=== PATIENT | male | born 1950 | race Hispanic/Latino ===

== ENCOUNTER 2018-04-11 20:08 | Inpatient (IN) | payer OTHER, MEDICARE ==
[~2018-04-11] VITALS: Ht 170.2 cm; Wt 122.5 kg
[2018-04-11 21:21] LABS: BASOPHILS % 0.5 % (0.0-1.0); EOSINOPHILS # (AUTO) 0.1 (0.0-0.4); EOSINOPHILS % 1.4 % (0.0-6.0); HEMATOCRIT 43.7 % (38.2-49.6); LYMPHOCYTES % 25.4 % (18.0-39.1); MEAN CORPUSCULAR HEMOGLOBIN 32.2 pg (28-32); MEAN CORPUSCULAR HGB CONC 34.3 g/dL (31-35); MEAN CORPUSCULAR VOLUME 93.8 fL (81-99); MONOCYTES # (AUTO) 0.8 (0.2-0.8); MONOCYTES % 9.6 % (4.4-11.3); NEUTROPHILS # (AUTO) 4.9 (2.1-6.9); NEUTROPHILS % 62.8 % (38.7-80.0); PLATELET COUNT 215 x10e3/uL (140-360); RED BLOOD COUNT 4.66 x10e6/uL (4.3-5.7); RED CELL DISTRIBUTION WIDTH 14.3 % (11.7-14.4)
[2018-04-11 21:37] LABS: ALBUMIN 3.8 g/dL (3.5-5.0); ALBUMIN/GLOBULIN RATIO 0.8 (0.8-2.0); CALCIUM 9.8 mg/dL (8.4-10.2); CREATININE, SERUM 4.26 mg/dL (0.72-1.25)
[2018-04-11 21:57] LABS: CREATINE KINASE MB 5.5 ng/mL (0-5.0); THYROID STIMULATING HORMONE 14.651 uIU/mL (0.350-4.940)
[2018-04-11 21:58] LABS: CLARITY,URINE CLEAR (CLEAR); COLOR,URINE YELLOW (YELLOW); LEUKOCYTE ESTERASE ,URINE NEGATIVE (NEGATIVE); NITRITE,URINE NEGATIVE (NEGATIVE)
[2018-04-11 21:59] LABS: BILIRUBIN,URINE NEGATIVE (NEGATIVE); KETONES,URINE NEGATIVE (NEGATIVE); PROTEIN,URINE DIPSTICK NEGATIVE (NEGATIVE); URINE UROBILINOGEN 0.2 mg/dL (0.2 - 1)
[2018-04-11 22:04] LABS: BACTERIA,URINE RARE /HPF; EPITHELIAL CELLS,URINE FEW /LPF; RBC,URINE 0-5 /HPF (0-5); WBC,URINE (MAN) 0-5 /HPF (0-5)
[2018-04-11 22:11] LABS: INR 1.08; PROTHROMBIN TIME 13.2 seconds (11.9-14.5)
[2018-04-11 22:12] LABS: PARTIAL THROMBOPLASTIN TIME 32.9 seconds (23.8-35.5)
--- NOTE | 2018-04-11 22:46 | Diagnostic Imaging Report ---
EXAM: CHEST 2 VIEWS, PA and lateral INDICATION: Renal failure COMPARISON: None FINDINGS: LINES/TUBES: None LUNGS: Interstitial edema PLEURA: No effusions or pneumothorax. HEART AND MEDIASTINUM: Normal size and contour. Median sternotomy wires and mediastinal clips. BONES AND SOFT TISSUES: No acute findings. Surgical clips right neck. IMPRESSION: Mild interstitial edema. Signed by: Dr. Selam Rai M.D. on 04/11/2018 10:42 PM
--- NOTE | 2018-04-12 00:51 | Diagnostic Imaging Report ---
EXAM: CT ABDOMEN AND PELVIS without IV CONTRAST INDICATION: Decreased urine output COMPARISON: None TECHNIQUE: The abdomen and pelvis were scanned using a multidetector helical scanner. Coronal and sagittal reformations were obtained. Renal stone protocol performed. IV Contrast: None Oral Contrast: None CTDIvol has been reviewed. It is below the limits set by the Radiation Protocol Committee (RPC). FINDINGS: LOWER THORAX: Motion artifact limits evaluation. There appears to be mild edema and several nonspecific pulmonary nodules measuring up to 6 mm in the lung bases. LIVER: No masses BILIARY: Normal gallbladder. No ductal dilation. SPLEEN: No masses PANCREAS: No masses ADRENALS: No nodules RIGHT KIDNEY: No nephroureterolithiasis or hydronephrosis. LEFT KIDNEY: No nephroureterolithiasis or hydronephrosis. GI TRACT: No wall thickening or obstruction. Sigmoid colon diverticulosis without evidence of diverticulitis. Normal appendix. VESSELS: Marked atherosclerotic changes of the abdominal aorta without aneurysm. PERITONEUM/RETROPERITONEUM: No free air or fluid LYMPH NODES: No lymphadenopathy REPRODUCTIVE ORGANS: The prostate measures 5.3 cm in transverse diameter. BLADDER: Decompressed by Garcia catheter. SOFT TISSUES: Normal BONES: No suspicious bone lesions. IMPRESSION: 1. No acute findings in the CT of the abdomen or pelvis. 2. Nonspecific pulmonary nodules seen in each lung base measuring up to [address] of the chest without IV contrast, low-dose protocol is recommended to assess for additional/larger nodules. 3. Prostatomegaly. Signed by: Dr. Selam Rai M.D. on 04/12/2018 12:48 AM
[2018-04-12] MEDS: SODIUM CHLORIDE 0.9% 1000ML 1,000 ML IV SCH ×4 (01:00→21:00)
--- OUTSIDE RECORDS SUMMARY | 2018-04-12 01:48 | XMS REPORT ---
[facility] Address Unknown Phone Unavailable Care Team Providers Care Putaway Driver Name Role Phone CHALINO HARRIS Unavailable Unavailable Problems This patient has no known problems. Allergies, Adverse Reactions, Alerts This patient has no known allergies or adverse reactions. Medications This patient has no known medications. Results Test Description Test Time Test Comments Text Results Atomic Results Result Comments CT ABDOMEN/PELVIS WO [place] [address] Patient Name: JOHNNY MALOENY MR #: [id number] : 1950 Age/Sex: 68/M Req #: [id number] Adm Physician: Ordered by: CHALINO HARRIS MD Report #: [id number] Location: ER Room/Bed: Procedure: [id number] CT/CT ABDOMEN/PELVIS WO Exam Date: 04/12/18 Exam Time: 0015 REPORT STATUS: Signed EXAM: CT ABDOMEN AND PELVIS without IV CONTRAST INDICATION: Decreased urine output COMPARISON: None TECHNIQUE: The abdomen and pelvis were scanned using a multidetector helical scanner. Coronal and sagittal reformations were obtained. Renal stone protocol performed. IV Contrast: None Oral Contrast : None CTDIvol has been reviewed. It is below the limits set by the Radiation Protocol Committee (RPC). FINDINGS: LOWER THORAX: Motion artifact limits evaluation. There appears to be mild edema and several nonspecific pulmonary nodules measuring up to 6 mm in the lung bases. LIVER: No masses BILIARY: Normal gallbladder. No ductal dilation. SPLEEN: No masses PANCREAS: No masses ADRENALS: No nodules RIGHT KIDNEY: No nephroureterolithiasis or hydronephrosis. LEFT KIDNEY: No nephroureterolithiasis or hydronephrosis. GI TRACT: No wall thickening or obstruction. Sigmoid colon diverticulosis without evidence of diverticulitis. Normal appendix. VESSELS: Marked atherosclerotic changes of the abdominal aorta without aneurysm. PERITONEUM/RETROPERITONEUM: No free air or fluid LYMPH NODES: No lymphadenopathy REPRODUCTIVE ORGANS: The prostate measures 5.3 cm in transverse diameter. BLADDER: Decompressed by Garcia catheter. SOFT TISSUES: Normal BONES: No suspicious bone lesions. IMPRESSION: 1. No acute findings in the CT of the abdomen or pelvis. 2. Nonspecific pulmonary nodules seen in each lung base measuring up to [address] of the chest without IV contrast, low-dose protocol is recommended to assess for additional/larger nodules. 3. Prostatomegaly. Signed by: Dr. Alida Rai M.D. on 04/12/2018 12:48 AM Dictated By: ALIDA RAI MD Transcribed By: ALANNA on 04/12/1847 COPY TO: CHALINO HARRIS MD CHEST 2 VIEWS [place] [address] Patient Name: JOHNNY MALONEY MR #: [id number] : 1950 Age/Sex: 68/M Req #: [id number] Adm Physician: Ordered by: CHALINO HARRIS MD Report #: [id number] Location: ER Room/Bed: Procedure: [id number] DX/CHEST 2 VIEWS Exam Date: Exam Time: REPORT STATUS: Signed EXAM: CHEST 2 VIEWS, PA and lateral INDICATION: Renal failure COMPARISON: None FINDINGS: LINES/TUBES: None LUNGS: Interstitial edema PLEURA: No effusions or pneumothorax. HEART AND MEDIASTINUM: Normal size and contour. Median sternotomy wires and mediastinal clips. BONES AND SOFT TISSUES: No acute findings. Surgical clips right neck. IMPRESSION: Mild interstitial edema. Signed by: Dr. Alida Rai M.D. on 04/11/2018 10:42 PM Dictated By: ALIDA RAI MD 41 Transcribed By: ALANNA on 04/11/182241 COPY TO: CHALINO HARRIS MD
[2018-04-12] MEDS ORDERED: LISINOPRIL20 MG PO (02:02)
[2018-04-12] MEDS ORDERED: METOPROLOL TART50 MG PO (02:02)
[2018-04-12] MEDS ORDERED: VALTREX500 MG PO (02:02)
[2018-04-12] MEDS ORDERED: CLONIDINE HCL0.2 MG PO (02:02)
[2018-04-12] MEDS ORDERED: LIPITOR20 MG PO (02:02)
[2018-04-12] MEDS ORDERED: LEVOTHYROXINE50 MCG PO (02:02)
[2018-04-12] MEDS ORDERED: GABAPENTIN400 MG PO (02:02)
[2018-04-12 02:09] VITALS: BP 110/69
[2018-04-12] MEDS ORDERED: ASPIRIN81 MG PO (02:41)
[2018-04-12] MEDS: METOPROLOL TARTRATE 50 MG TAB PO SCH ×3 (03:00→17:35)
[2018-04-12] MEDS: CLONIDINE HCL 0.2 MG TAB PO SCH ×4 (03:08→17:33)
[2018-04-12 04:00] VITALS: BP 148/59
[2018-04-12] MEDS ORDERED: LEVOTHYROXINE SODIUM 25 MCG TABLET PO SCH ×2 (06:00→10:30)
[2018-04-12 07:56] VITALS: BP 138/62
[2018-04-12 07:56] LABS: BASOPHILS % 0.6 % (0.0-1.0); EOSINOPHILS # (AUTO) 0.1 (0.0-0.4); HEMATOCRIT 41.8 % (38.2-49.6); HEMOGLOBIN 14.1 g/dL (14.0-18.0); LYMPHOCYTES % 28.3 % (18.0-39.1); MEAN CORPUSCULAR HGB CONC 33.7 g/dL (31-35); MEAN CORPUSCULAR VOLUME 94.8 fL (81-99); MONOCYTES # (AUTO) 0.6 (0.2-0.8); MONOCYTES % 8.1 % (4.4-11.3); NEUTROPHILS # (AUTO) 4.2 (2.1-6.9); NEUTROPHILS % 60.9 % (38.7-80.0); PLATELET COUNT 212 x10e3/uL (140-360); RED BLOOD COUNT 4.41 x10e6/uL (4.3-5.7); RED CELL DISTRIBUTION WIDTH 14.5 % (11.7-14.4)
[2018-04-12 08:25] LABS: ALBUMIN 3.3 g/dL (3.5-5.0); ALBUMIN/GLOBULIN RATIO 0.8 (0.8-2.0); CALCIUM 9.3 mg/dL (8.4-10.2); CREATININE, SERUM 3.38 mg/dL (0.72-1.25)
[2018-04-12 08:45] LABS: CREATINE KINASE MB 4.8 ng/mL (0-5.0)
[2018-04-12] MEDS: GABAPENTIN 400 MG CAP PO SCH ×3 (09:00→17:34)
[2018-04-12] MEDS: ATORVASTATIN 20 MG TAB PO SCH ×2 (09:00→10:44)
[2018-04-12] MEDS ORDERED: VALACYCLOVIR HCL 500 MG TAB PO SCH (09:00)
[2018-04-12] MEDS: FAMOTIDINE 20 MG/2 ML VIAL IV SCH ×2 (10:41→21:27)
[2018-04-12] MEDS: ASPIRIN 81 MG CHEW TAB PO SCH (10:41)
[2018-04-12] MEDS ORDERED: LEVOTHYROXINE SODIUM 50 MCG TAB PO SCH (10:45)
--- NOTE | 2018-04-12 11:46 | History and Physical ---
Mr. Prasad is a pleasant, 68-year-old man who works for the [employer] who presented to the emergency room on the evening of the with the complaint of pelvic pain and inability to urinate. HISTORY OF PRESENT ILLNESS: The patient and his , who both speak only [place], report that his problems really began last Monday, the 06 of April, when he noted shingles on the right side of his neck and visited a doctor in [place] where he was given valacyclovir and gabapentin. He felt he was getting better with that until during the day on Monday, the 11 of April, when he developed discomfort in his pelvis and genitals and could not urinate for several hours and decided to come to the emergency room. PAST MEDICAL HISTORY: Significant for hypertension. He has known coronary disease with coronary artery bypass graft surgery at [facility] in 2007. He had lumbar spine surgery in 2013. HOME MEDICATIONS: Include: 1. Aspirin 81 mg daily. 2. Atorvastatin 20 mg 3. 8 mg daily. 4. Clonidine 0.2 mg b.i.d. 5. Gabapentin 400 mg b.i.d. 6. Levothyroxine 25 mcg daily. 7. Lisinopril 40 mg daily. 8. Toprol 50 mg twice a day. 9. Valacyclovir 1,000 mg t.i.d. SOCIAL HISTORY: The patient works for the [employer]. He does not smoke. REVIEW OF SYSTEMS : He does not know of any kidney problems. GASTROINTESTINAL: Negative. FAMILY HISTORY: Not pertinent. PHYSICAL EXAMINATION GENERAL: Exam at this time shows a pleasant, obese, man, alert and responsive. VITALS: Blood pressure 138/62 presently. The blood pressure in the emergency room was 190 to 200 systolic. HEAD, EYES, EARS, NOSE AND THROAT: Unremarkable. NECK: There are healing punctate lesions on the right side of the neck that do not include pustules. THORAX: Healed midline sternotomy. Heart sounds S1 and S2 are equal, no murmurs. Lungs are clear. ABDOMEN: Protuberant. Normal bowel sounds. Nontender. EXTREMITIES: No cyanosis, clubbing or edema. : He has a Garcia catheter in place, placed by the emergency room. PERTINENT LABORATORY STUDIES: Unremarkable CBC. Presenting chemistries showed BUN 68, creatinine 4.26, TSH 14.6. BNP is 157. Urinalysis is unremarkable. CT scan of the abdomen is unremarkable. Chest x-ray shows a 6-mm pulmonary nodule. ASSESSMENT 1. Urinary retention, etiology not clear. 2. Renal insufficiency, not previously known. 3. Recent shingles. 4. Difficult hypertension. 5. Hypothyroidism, not appropriately replaced, with thyroid-stimulating hormone of 14.6. PLAN: The patient has already had a Garcia catheter placed. Will continue his antihypertensives and valacyclovir. We will ask for renal and urology input. Further management based on clinical course. Job#: [id number] cc:MD VIVIAN MELÉNDEZ MD RAUL GARCIA, MD
[2018-04-12 12:22] VITALS: BP 172/83
--- NOTE | 2018-04-12 12:36 | Consultation ---
DATE OF CONSULTATION: April 12, 2018 UROLOGICAL CONSULTATION CONSULTATION TO: Dr. Horner and Dr. Lomax. REASON FOR CONSULTATION: Urinary retention. HISTORY: This 68-year-old male comes to the hospital after being discharged from [facility] for pain around his neck and back. The patient has herpes zoster. This is surrounding the right side upper chest. Patient was there, stated that apparently he was fine except for the pain. They gave him an injection. After the injection, he started feeling poorly and that he apparently had developed a problem since then. He signed himself out of the hospital there, went to see his primary, and his primary recommended him to come to the hospital for treatment. Upon arrival here, it was noted that his BUN and creatinine were elevated and that the reason for him to come to the hospital was because he was having suprapubic pain and that he had been unable to urinate. Upon arrival, a Garcia catheter was placed in. I have looked at the chart and I have not seen how much he had in his bladder then. PAST UROLOGICAL HISTORY: Essentially negative. PAST SURGICAL HISTORY: He has had open heart surgery for coronary artery disease and he has had back surgery, lumbar, with hardware placed in the back. MEDICAL HISTORY: High blood pressure. UROLOGICAL EXAMINATION: Bilaterally descended testicles. Penis is uncircumcised, normal. Garcia catheter in place. Lipoma of the left groin. Prostate approximately [address] SCAN: CT scan, from the urological standpoint there are no stones in the bladder or the kidneys. There is no perinephric stranding to suggest some edema reaction of the kidney to account for the high and very abnormal BUN and creatinine. He is having renal urine which is clear. LAB WORK: BUN and creatinine elevated, otherwise all the tests are normal. A urine culture is pending. IMPRESSION: Urinary retention and renal failure. RECOMMENDATIONS: At the present time, continue Garcia catheter drainage and check BUN and creatinine in 24 hours. Will follow recommendations of Nephrology as kidney function goes, and I will determine when I am going to remove the Garcia and give him a voiding trial. I do not recommend adding any medication to this patient at this point such as tamsulosin or finasteride since there is no CT scan evidence of any chronic urinary retention or symptomatology of chronic urinary retention. Thank you very much for allowing me to see this patient in consultation with you. Job#: [id number] EV
--- NOTE | 2018-04-12 15:35 | Consultation ---
DATE OF CONSULTATION: April 12, 2018 RENAL CONSULTATION HISTORY OF PRESENT ILLNESS: History predominantly from and patient. A 68-year-old gentleman with underlying history of type 2 diabetes, hypertension, hypothyroidism, hyperlipidemia. Renal consult for evaluation of acute kidney injury. He was unable to pee despite straining. He denies any prior history of prostate enlargement. Denies prior history of any kidney disease. Denies any history of kidney stones. Has history of neuropathy. CURRENT MEDICATIONS: Include aspirin, normal saline, atorvastatin, clonidine 0.2 p.o. t.i.d., famotidine, gabapentin, levothyroxine, metoprolol and valacyclovir 1000 mg p.o. t.i.d. SOCIAL HISTORY: Does not smoke or drink. ALLERGIES: TO PENICILLIN. FAMILY HISTORY: Significant for hypertension. CURRENT REVIEW OF SYSTEMS: Negative for nausea, vomiting, chest pain, shortness of breath. LABS: White count 6.88. Hemoglobin 14.1. Potassium 5. Bicarbonate 21. Creatinine 4.26. With a BNP of 157. TSH of 14.651. Total protein 8.3, which is now down to 7.2 with a globulin of 3.9. PHYSICAL EXAMINATION: GENERAL: Awake, alert, lying supine. No apparent distress. VITALS: Blood pressure 172/83, pulse rate 51, afebrile, oxygen saturation 96% on room air. HEAD AND NECK: Cornea clear. Oral mucosa dry. LUNGS: Relatively clear. HEART: S1 and S2 audible. ABDOMEN: Otherwise soft, nontender. LOWER EXTREMITY EXAMINATION: Shows no edema. IMPRESSION: Cvlbq-yq-ipfizaw kidney failure. Obstructive uropathy. Bladder neck obstruction due to enlarged prostate. CT scan noted mild distal renal tubular acidosis. Elevated TSH, defer to primary. CK-MB 5.50. No evidence of CHF. Echocardiogram pending. Will obtain kidney ultrasound, 24-hour urine for creatinine clearance and proteins. Will start Flomax 0.4 mg at bedtime. Continue with IV normal saline. Blood pressure noted. Please see orders. Job#: [id number] EV
[2018-04-12 16:13] VITALS: BP 162/79
--- NOTE | 2018-04-12 16:22 | Diagnostic Imaging Report ---
PROCEDURE:US RETROPERITONEAL ( KIDNEY ). COMPARISON:Patients [facility], CT, CT ABDOMEN/PELVIS WO, 04/12/2018, 0:20. INDICATIONS:KRISTIN TECHNIQUE: Castillo-scale and color sonographic images of the bilateral kidneys and bladder where obtained in transverse and longitudinal planes. FINDINGS: RIGHT KIDNEY: 11.1 cm, cortex 1.5 cm Cysts: None Solid masses: None Stones: None Hydronephrosis: None Echogenicity: Normal LEFT KIDNEY: 10.8 cm, cortex 2.4 cm Cysts: None Solid masses: None Stones: None Hydronephrosis: None Echogenicity: Normal Bladder: Garcia catheter in place. No focal lesions or wall thickening. Prostate: Not visualized. CONCLUSION: Normal bilateral renal size, and echogenicity, without hydronephrosis, stones, or obstruction. Rui Mari M.D. Dictated by: Rui Mari M.D. on 04/12/2018 at 16:24 Electronically approved by: Rui Mari M.D. on 04/12/2018 at 16:24
[2018-04-12 17:09] LABS: CREATINE KINASE MB 4.3 ng/mL (0-5.0)
[2018-04-12] MEDS: VALACYCLOVIR HCL 500 MG TAB PO SCH (17:37)
[2018-04-12 20:00] VITALS: BP 160/70
[2018-04-12] MEDS: CATAPRES PO SCH (21:00)
[2018-04-12] MEDS: ATORVASTATIN 80 MG PO SCH (21:28)
[2018-04-12] MEDS: TAMSULOSIN HCL 0.4 MG CAP PO SCH (21:28)
[2018-04-13] VITALS (7 sets, daily range): BP systolic 139–197; BP diastolic 65–91
[2018-04-13 05:12] LABS: CLARITY,URINE SL CLOUDY (CLEAR); COLOR,URINE STRAW (YELLOW); LEUKOCYTE ESTERASE ,URINE NEGATIVE (NEGATIVE); NITRITE,URINE NEGATIVE (NEGATIVE)
[2018-04-13 05:13] LABS: PROTEIN,URINE DIPSTICK 1+ (NEGATIVE)
[2018-04-13 05:14] LABS: AMORPHOUS SEDIMENT,URINE FEW (FEW); BACTERIA,URINE FEW /HPF; BILIRUBIN,URINE NEGATIVE (NEGATIVE); EPITHELIAL CELLS,URINE RARE /LPF; KETONES,URINE NEGATIVE (NEGATIVE); MUCUS,URINE FEW (RARE); RBC,URINE >50 /HPF (0-5); URINE UROBILINOGEN 0.2 mg/dL (0.2 - 1)
[2018-04-13] MEDS: SYNTHROID 25 MCG PO SCH (06:00)
[2018-04-13] MEDS ORDERED: SYNTHROID 25 MCG PO SCH (06:00)
[2018-04-13 06:33] LABS: BASOPHILS % 0.5 % (0.0-1.0); EOSINOPHILS # (AUTO) 0.1 (0.0-0.4); EOSINOPHILS % 1.6 % (0.0-6.0); HEMATOCRIT 43.4 % (38.2-49.6); HEMOGLOBIN 14.5 g/dL (14.0-18.0); LYMPHOCYTES # (AUTO) 2.1 (1.0-3.2); LYMPHOCYTES % 26.7 % (18.0-39.1); MEAN CORPUSCULAR HEMOGLOBIN 32.3 pg (28-32); MEAN CORPUSCULAR HGB CONC 33.4 g/dL (31-35); MEAN CORPUSCULAR VOLUME 96.7 fL (81-99); MONOCYTES # (AUTO) 0.5 (0.2-0.8); MONOCYTES % 6.6 % (4.4-11.3); NEUTROPHILS # (AUTO) 4.9 (2.1-6.9); NEUTROPHILS % 64.2 % (38.7-80.0); PLATELET COUNT 263 x10e3/uL (140-360); RED BLOOD COUNT 4.49 x10e6/uL (4.3-5.7); RED CELL DISTRIBUTION WIDTH 14.3 % (11.7-14.4)
[2018-04-13 06:52] LABS: CHOL/HDL RATIO 7.1 (3.9-4.7)
[2018-04-13] MEDS: SODIUM CHLORIDE 0.9% 1000ML 1,000 ML IV SCH ×2 (07:00→17:00)
[2018-04-13 07:33] LABS: ALBUMIN 3.5 g/dL (3.5-5.0); ALBUMIN/GLOBULIN RATIO 0.8 (0.8-2.0); CALCIUM 9.6 mg/dL (8.4-10.2); CREATININE, SERUM 2.22 mg/dL (0.72-1.25)
[2018-04-13] MEDS: CATAPRES PO SCH ×3 (09:00→21:10)
[2018-04-13] MEDS: GABAPENTIN 400 MG PO SCH ×2 (09:00→17:00)
[2018-04-13] MEDS: ASPIRIN 81 MG CHEW TAB PO SCH (09:00)
[2018-04-13] MEDS: VALACYCLOVIR HCL 500 MG TAB PO SCH ×2 (09:00→17:00)
[2018-04-13] MEDS: FAMOTIDINE 20 MG/2 ML VIAL IV SCH ×2 (09:00→21:10)
[2018-04-13] MEDS: LOPRESSOR 50 MG PO SCH ×2 (09:00→17:00)
[2018-04-13] MEDS: NIFEDIPINE CR 30 MG TAB PO SCH ×2 (09:58→17:00)
--- NOTE | 2018-04-13 12:56 | Progress Note ---
DATE: April 13, 2018 The patient today is doing better. As a matter of fact, his white blood cells and red blood cell count are stable and normal, so are his platelets. Chemistry-cho, his creatinine is now 2.2 instead of 3.3 as it was yesterday. His BUN instead of being 66 is 43. Currently, the patient has been afebrile. He offers no complaints of any pain. Since the patient went into urinary retention, the Garcia catheter was placed in. A voiding trial will be done now, since his BUN and creatinine are getting better. It has nothing to do with catheter drainage, since the patient did not have hydroureteronephrosis. His bladder also is nontrabeculated and normal. We will give him a voiding trial. I discussed that yesterday on my notes. The patient had been placed on tamsulosin by Dr. Lomax. The patient understands that he will need to measure his postvoid residual if he is able to urinate. If he is unable to urinate again, then further testing will be performed next week. Job#: [id number]
[2018-04-13 19:51] LABS: CREATININE,URINE RANDOM 56.01 mg/dL (63-166); TOTAL PROTEIN 24HR, URINE 1423.4 mg/24hr (50-100); TOTAL PROTEIN, URINE 34.3 mg/dL (1-14)
[2018-04-13] MEDS: TAMSULOSIN HCL 0.4 MG CAP PO SCH (21:10)
[2018-04-13] MEDS: ATORVASTATIN 80 MG PO SCH (21:10)
[2018-04-14] VITALS: BP 149/65
[2018-04-14 04:00] VITALS: BP 162/75
[2018-04-14] MEDS: SODIUM CHLORIDE 0.9% 1000ML 1,000 ML IV SCH ×2 (05:24→13:00)
[2018-04-14] MEDS: SYNTHROID 25 MCG PO SCH (06:00)
[2018-04-14 07:17] LABS: ALBUMIN 3.2 g/dL (3.5-5.0); ALBUMIN/GLOBULIN RATIO 0.9 (0.8-2.0); ANION GAP 11.2 mmol/L (8-16); CALCIUM 8.9 mg/dL (8.4-10.2); CREATININE, SERUM 1.5 mg/dL (0.72-1.25); POTASSIUM 4.2 mmol/L (3.5-5.1)
[2018-04-14 08:08] VITALS: BP 164/79
[2018-04-14] MEDS: NIFEDIPINE CR 30 MG TAB PO SCH (09:00)
[2018-04-14] MEDS: CATAPRES PO SCH (09:00)
[2018-04-14] MEDS: VALACYCLOVIR HCL 500 MG TAB PO SCH (09:00)
[2018-04-14] MEDS: FAMOTIDINE 20 MG/2 ML VIAL IV SCH (09:00)
[2018-04-14] MEDS: GABAPENTIN 400 MG PO SCH (09:00)
[2018-04-14] MEDS: LOPRESSOR 50 MG PO SCH (09:00)
[2018-04-14] MEDS: ASPIRIN 81 MG CHEW TAB PO SCH (09:00)
--- NOTE | 2018-04-14 09:42 | Progress Note ---
DATE: April 14, 2018 Today, the patient is doing well. Garcia catheter was removed last night after his 24-hour urine collection was concluded and since then the patient has voided perfectly. His usual voided amount is about 200 mL and his residuals have been around 35-60 mL. The patient at the present time is urologically stable and has no other complaints. His urine culture has been negative. BUN today is 31 as compared to 66 when he was admitted and his creatinine is 1.5 as compared to 3.3 when he was admitted. The patient states that his flow is good. He feels he empties his bladder. He does not have a split flow or an interrupted flow. IMPRESSION: Urologically normal and stable. RECOMMENDATIONS: Previous hospital, [facility], records are still not in. Dr. Lomax has given the patient Flomax and will let his continue to decide whether the patient needs to have that medication or not. I asked the patient and the that after he is discharged from the hospital to call my office and make an appointment. I would like to do a flow test in the office and a PSA. Job#: [id number] cc:VIVIAN LOMAX MD cc:RAUL VALLEJO MD cc:SMITHA QUEEN MD cc:SEVEN ROWELL MD
[2018-04-14 12:00] VITALS: BP 161/76
[2018-04-14] MEDS ORDERED: NIFEDIPINE CR 30 MG TAB PO SCH (17:00)
[2018-04-14 17:11] VITALS: BP 182/79
[2018-04-14 20:00] VITALS: BP 194/88
== END 2018-04-14 20:12 | disposition home or self-care (01) | DRG 725 ==
LOC: ER 20:08 → MED/SURG 04-12 01:44
PROVIDERS: ADMIT Internal Medicine Cardiovascular Disease; ATTEND Internal Medicine Cardiovascular Disease
DX: N40.1 Benign prostatic hyperplasia with lower urinary tract symptoms (principal); N17.0 Acute kidney failure with tubular necrosis; N13.8 Other obstructive and reflux uropathy; I13.0 Hypertensive heart and chronic kidney disease with heart failure and stage 1 through stage 4 chronic kidney disease, or unspecified chronic kidney disease; Z68.41 Body mass index [BMI] 40.0-44.9, adult; E03.9 Hypothyroidism, unspecified; N32.0 Bladder-neck obstruction; E11.22 Type 2 diabetes mellitus with diabetic chronic kidney disease; Z79.4 Long term (current) use of insulin; E66.01 Morbid (severe) obesity due to excess calories; B02.9 Zoster without complications; I25.10 Atherosclerotic heart disease of native coronary artery without angina pectoris; Z95.1 Presence of aortocoronary bypass graft; N18.3 Chronic kidney disease, stage 3 (moderate); Z88.0 Allergy status to penicillin; R91.1 Solitary pulmonary nodule
CPT/HCPCS: 36415; 51700; 71046; 74176; 76770; 80053; 80061; 81001; 81050; 82550; 82553; 82575; 82948; 83735; 83880; 84156; 84443; 84484; 85025; 85610; 85730; 87086; 93005; 93306; J7030

== ENCOUNTER 2018-04-16 12:31 | Emergency (ER) | payer OTHER, MEDICARE ==
[~2018-04-16] VITALS: Ht 170.2 cm; Wt 122.5 kg
[~2018-04-16 12:31] MED LIST: ASPIRIN81 MG PO; CLONIDINE HCL0.2 MG PO; GABAPENTIN400 MG PO; LEVOTHYROXINE50 MCG PO; LIPITOR20 MG PO; LISINOPRIL20 MG PO; METOPROLOL TART50 MG PO; VALTREX500 MG PO
--- OUTSIDE RECORDS SUMMARY | 2018-04-16 12:34 | XMS REPORT | Continuity of Care Document ---
Author Author [facility] Organization [facility] Address [address] [address] Phone Unavailable Care Team Providers Care Personalized Living Manager Nurse Name Role Phone SEVEN ROWELL MD PCP Insurance Providers Guarantor Collins Cavazos Address [address] [place] [address] Email [email or web address] Payer A[employer] Medicare Replacement Policy Number [id number] Subscriber's Name Collins Zurita Relationship G8 Other Relationship Group Number [id number] Group Name [employer] Effective Date 17 Payer Cigna Hmo Policy Number [id number] Subscriber's Name Santi Cavazos Relationship 18 Self / Same As Patient Group Number [id number] Group Name [facility] Effective Date 12 Advance Directives Directive Response Recorded Date/Time Does the patient have an advance directive? No 04/12/18 2:34am If yes, is advance directive on file with [facility]? No 04/12/18 2:34am If not on file with [facility] will patient provide a copy? Yes 04/11/18 9:55pm Do you have a Directive to Physician? No 04/11/18 9:55pm Do you have a Medical Power of Licensed Occupational Therapy Assistant? No 04/11/18 9:55pm Do you have an out of hospital Do Not Resuscitate Order? No 04/11/18 9:55pm Do you have any special needs we should be aware of? No 04/11/18 9:55pm Do you have a support person here with you today? Yes 04/11/18 9:55pm Did patient receive Notice of Privacy Practices? Yes 04/11/18 9:55pm Did patient receive patient rights and responsibilities? Yes 04/11/18 9:55pm Problems Medical Problem Onset Date Status Acute renal failure Unknown Medications Current Home Medications Medication Dose Units Route Directions Days Qty Instructions Start Date Aspirin 81 Mg Tab.chew 81 Mg Oral Daily Atorvastatin Calcium (Lipitor) 20 Mg Tablet 80 Mg Oral Daily 30 Tab Clonidine Hcl 0.2 Mg Tablet 0.2 Mg Oral Three Times A Day Gabapentin 400 Mg Capsule 400 Mg Oral Twice A Day 30 Cap Levothyroxine Sodium 50 Mcg Tablet 25 Mcg Oral Daily 30 Tab Lisinopril (Prinavil / Zestril) 20 Mg Tablet 40 Mg Oral Daily Metoprolol Tartrate 50 Mg Tablet 50 Mg Oral Twice A Day Valacyclovir Hcl (Valtrex) 500 Mg Tab 1,000 Mg Oral Three Times A Day Family History Relationship Condition Age at Onset Recorded Date/Time 34 Mother Family history of hypertension Not Recorded 04/12/2018 2:52am Social History Social History Problem Response Recorded Date/Time Onset Date Status Hx Psychiatric Problems No 04/12/2018 2:34am Not Applicable Not Applicable Hx Eating Disorder No 04/12/2018 2:34am Not Applicable Not Applicable Hx Substance Use Disorder No 04/12/2018 2:34am Not Applicable Not Applicable Hx Depression No 04/12/2018 2:34am Not Applicable Not Applicable Hx Alcohol Use No 04/12/2018 2:34am Not Applicable Not Applicable Hx Substance Use Treatment No 04/12/2018 2:34am Not Applicable Not Applicable Hx Physical Abuse No 04/12/2018 2:34am Not Applicable Not Applicable Smoking Status Start Date Stop Date Never Smoker Hospital Discharge Instructions No hospital discharge instruction information available. Plan of Care Discharge Date 04/14/18 8:12pm Disposition HOME, SELF-CARE Instructions/Education Provided Kidney Failure Prescriptions See Medication Section Additional Instructions/Education CONTINUE DIET, ACTIVITY AND MEDS ORDERED BY MD. FOLLOW UP WITH DR ROWELL, DR MERCEDES AND DR FRANCISCO NEXT WEEK. Functional Status Query Response Date Recorded Assistive Devices None April 12, 2018 2:44am Ambulation Ability Independent April 12, 2018 2:44am Toileting Ability Independent April 14, 2018 6:59pm Allergies, Adverse Reactions, Alerts Allergen Type Severity Reaction Status Last Updated PENICILLIN Allergy Severe Active 04/11/18 Immunizations No immunization information available. Vital Signs Acute Vital Signs Vital Response Date/Time Temperature (Fahrenheit) 97.2 degrees F (97.6 - 99.5) 04/14/2018 8:00pm Pulse Pulse Rate (adult) 57 bpm (60 - 90) 04/14/2018 8:00pm Respiratory Rate 18 bpm (12 - 24) 04/14/2018 8:00pm Blood Pressure 194/88 mm Hg 04/14/2018 8:00pm Height 5 ft 7 in 04/11/2018 8:12pm Weight 270 lb 04/11/2018 8:12pm Body Mass Index 42.3 kg/m^2 04/12/2018 2:34am Results Laboratory Results Test Name Result Units Flags Reference Collection Date/Time Result Date/ Time Comments White Blood Count 7.68 x10e3/uL 4.8-10.8 04/13/2018 6:10am 04/13/2018 6 :35am Red Blood Count 4.49 x10e6/uL 4.3-5.7 04/13/2018 6:10am 04/13/2018 6: 35am Hemoglobin 14.5 g/dL 14.0-18.0 04/13/2018 6:10am 04/13/2018 6:35am Hematocrit 43.4 % 38.2-49.6 04/13/2018 6:10am 04/13/2018 6:35am Mean Corpuscular Volume 96.7 fL 81-99 04/13/2018 6:10am 04/13/2018 6: 35am Mean Corpuscular Hemoglobin 32.3 pg H 28-32 04/13/2018 6:10am 2017 6:35am Mean Corpuscular Hemoglobin Concent 33.4 g/dL 31-35 04/13/2018 6:04/13/2018 6:35am Red Cell Distribution Width 14.3 % 11.7-14.4 04/13/2018 6:2017 6:35am Platelet Count 263 x10e3/uL 140-360 04/13/2018 6:04/13/2018 6: 35am Neutrophils (%) (Auto) 64.2 % 38.7-80.0 04/13/2018 6:04/13/2018 6: 35am Lymphocytes (%) (Auto) 26.7 % 18.0-39.1 04/13/2018 6:04/13/2018 6: 35am Monocytes (%) (Auto) 6.6 % 4.4-11.3 04/13/2018 6:04/13/2018 6: 35am Eosinophils (%) (Auto) 1.6 % 0.0-6.0 04/13/2018 6:04/13/2018 6: 35am Basophils (%) (Auto) 0.5 % 0.0-1.0 04/13/2018 6:04/13/2018 6:35am IM GRANULOCYTES % 0.4 % 0.0-1.0 04/13/2018 6:04/13/2018 6:35am Neutrophils # (Auto) 4.9 2.1-6.9 04/13/2018 6:04/13/2018 6:35am Lymphocytes # (Auto) 2.1 1.0-3.2 04/13/2018 6:04/13/2018 6:35am Monocytes # (Auto) 0.5 0.2-0.8 04/13/2018 6:04/13/2018 6:35am Eosinophils # (Auto) 0.1 0.0-0.4 04/13/2018 6:04/13/2018 6:35am Basophils # (Auto) 0.0 0.0-0.1 04/13/2018 6:04/13/2018 6:35am Absolute Immature Granulocyte (auto 0.03 x10e3/uL 0-0.1 04/13/2018 6: 04/13/2018 6:35am Prothrombin Time 13.2 seconds 11.9-14.5 04/11/2018 9:02pm 04/11/2018 10 :12pm Prothromb Time International Ratio 1.08 04/11/2018 9:02pm 2017 10:12pm Oral Anticoagulant Therapy INR Values: 1. Low Intensity Therapy 1.5 - 2.0 2. Moderate Intensity Therapy 2.0 - 3.0 3. High Intensity Therapy(1) 2.5 - 3.5 4. High Intensity Therapy(2) 3.0 - 4.0 5. Panic Value INR > 5.0 Activated Partial Thromboplast Time 32.9 seconds 23.8-35.5 04/11/2018 9: 02pm 04/11/2018 10:12pm Urine Color STRAW YELLOW 04/13/2018 4:00am 04/13/2018 5:14am Urine Clarity SL CLOUDY H CLEAR 04/13/2018 4:00am 04/13/2018 5:14am Urine Specific [place] 1.010 1.010-1.025 04/13/2018 4:00am 2017 5:14am Urine pH 5 5 - 7 04/13/2018 4:00am 04/13/2018 5:14am Urine Leukocyte Esterase NEGATIVE NEGATIVE 04/13/2018 4:00am 2017 5:14am Urine Nitrite NEGATIVE NEGATIVE 04/13/2018 4:00am 04/13/2018 5:14am Urine Protein 1+ H NEGATIVE 04/13/2018 4:00am 04/13/2018 5:14am Urine Glucose (UA) NEGATIVE NEGATIVE 04/13/2018 4:00am 04/13/2018 5: 14am Urine Ketones NEGATIVE NEGATIVE 04/13/2018 4:00am 04/13/2018 5:14am Urine Urobilinogen 0.2 mg/dL 0.2 - 1 04/13/2018 4:00am 04/13/2018 5: 14am Urine Bilirubin NEGATIVE NEGATIVE 04/13/2018 4:00am 04/13/2018 5: 14am Urine Blood 4+ H NEGATIVE 04/13/2018 4:00am 04/13/2018 5:14am Urine WBC 6-10 /HPF H 0-5 04/13/2018 4:00am 04/13/2018 5:14am Urine RBC >50 /HPF H 0-5 04/13/2018 4:00am 04/13/2018 5:14am Urine Bacteria FEW /HPF NONE 04/13/2018 4:00am 04/13/2018 5:14am Urine Epithelial Cells RARE /LPF NONE 04/13/2018 4:00am 04/13/2018 5: 14am Urine Amorphous Sediment FEW FEW 04/13/2018 4:00am 04/13/2018 5:14am Urine Mucus FEW H RARE 04/13/2018 4:00am 04/13/2018 5:14am Urine Random Total Protein 34.3 mg/dL H 1-14 04/12/2018 7:20pm 2017 7:52pm Urine Collection Time 24 hrs 04/12/2018 7:20pm 04/13/2018 7:52pm Urine Total Volume 4150 ml/24hr H 800-2000 04/12/2018 7:20pm 04/13/2018 7:52pm Urine Creatinine 56.01 mg/dL L 63-166 04/12/2018 7:20pm 04/13/2018 7: 52pm Urine Creatinine 24 Hour 2324 mg/24hr H 800-199904/12/2018 7:20pm 04/13 7:52pm Creatinine Clearance 48 ml/min L 95-145 04/12/2018 7:20pm 04/13/2018 7: 52pm Urine Total Protein 24 Hour 1423.4 mg/24hr H 50-100 04/12/2018 7:20pm 7:52pm Sodium Level 134 mmol/L L 136-145 04/14/2018 6:40am 04/14/2018 7:25am Potassium Level 4.2 mmol/L 3.5-5.1 04/14/2018 6:40am 04/14/2018 7:25am Chloride Level 107 mmol/L 98-107 04/14/2018 6:40am 04/14/2018 7:25am Carbon Dioxide Level 20 mmol/L L 22-04/14/2018 6:40am 04/14/2018 7: 25am Anion Gap 11.2 mmol/L 8-16 04/14/2018 6:40am 04/14/2018 7:25am Blood Urea Nitrogen 31 mg/dL H 704/14/2018 6:40am 04/14/2018 7:25am Creatinine 1.50 mg/dL H 0.72-1.25 04/14/2018 6:40am 04/14/2018 7:25am BUN/Creatinine Ratio 21 6-25 04/14/2018 6:40am 04/14/2018 7:25am Estimat Glomerular Filtration Rate 47 ML/MIN L 60- 04/14/2018 6:40am 7:25am Ranges were taken from the National Kidney Disease Education Program and the National Kid[employer] Foundation literature. Reference ranges: 60 or greater: Normal 16-59 (for 3 consecutive months): Chronic kidney disease 15 or less: Kidney failure Glucose Level 120 mg/dL H 74-118 04/14/2018 6:40am 04/14/2018 7:25am Calcium Level 8.9 mg/dL 8.4-10.2 04/14/2018 6:40am 04/14/2018 7:25am Bedside Glucose 85 mg/dL 70-120 04/13/2018 7:49am 04/13/2018 8:02am Meter ID: [id number] Magnesium Level 1.8 MG/DL 1.3-2.1 04/11/2018 9:02pm 04/11/2018 10:11pm Total Bilirubin 0.8 mg/dL 0.2-1.2 04/14/2018 6:40am 04/14/2018 7:25am Aspartate Amino Transf (AST/SGOT) 23 IU/L 5-34 04/14/2018 6:40am 2017 7:25am Alanine Aminotransferase (ALT/SGPT) 34 IU/L 0-55 04/14/2018 6:40am 7:25am Total Protein 6.8 g/dL 6.5-8.1 04/14/2018 6:40am 04/14/2018 7:25am Albumin 3.2 g/dL L 3.5-5.0 04/14/2018 6:40am 04/14/2018 7:25am Globulin 3.6 g/dL H 2.3-3.5 04/14/2018 6:40am 04/14/2018 7:25am Albumin/Globulin Ratio 0.9 0.8-2.0 04/14/2018 6:40am 04/14/2018 7: 25am Alkaline Phosphatase 62 IU/L 40-150 04/14/2018 6:40am 04/14/2018 7: 25am Triglycerides Level 161 MG/DL H 0-149 04/13/2018 6:10am 04/13/2018 6: 54am Cholesterol Level 164 MD/DL 0-199 04/13/2018 6:10am 04/13/2018 6:54am Less than 200 mg/dL Low Risk 201 - 239 mg/dL Borderline Risk 240 mg/dl and greater High Risk LDL Cholesterol 109 MG/DL 60-130 04/13/2018 6:10am 04/13/2018 6:54am HDL Cholesterol 23 MG/DL L 40-60 04/13/2018 6:10am 04/13/2018 6:54am Cholesterol/HDL Ratio 7.1 H 3.9-4.7 04/13/2018 6:10am 04/13/2018 6: 54am B-Type Natriuretic Peptide 157.4 pg/mL H 0-100 04/11/2018 9:02pm 2017 11:06pm Creatine Kinase 105 IU/L 30-200 04/12/2018 4:20pm 04/12/2018 5:01pm Creatine Kinase MB 4.30 ng/mL 0-5.0 04/12/2018 4:20pm 04/12/2018 5: 09pm Troponin I 0.008 ng/mL 0-0.300 04/12/2018 4:20pm 04/12/2018 5:09pm Thyroid Stimulating Hormone (TSH) 14.651 uIU/mL H 0.350-4.940 04/11/2018 9:02pm 04/11/2018 10:00pm Procedures Procedure Status Date Provider(s) X-ray of chest, two views Active 04/11/[address] of abdomen and pelvis without contrast Active 04/12/18 CHALINO HARRIS MD Ultrasound, renal Active 04/12/18 VIVIAN MERCEDES Encounters Encounter Location Arrival/Admit Date Discharge/Depart Date Attending Provider Discharged Inpatient [facility] 04/12/18 1:44am 04/14/18 8:12pm RAUL VALLEJO MD
[2018-04-16] MEDS ORDERED: ASPIRIN 81 MG CHEW TAB PO ONE (13:45)
[2018-04-16 15:15] LABS: BILIRUBIN,URINE NEGATIVE (NEGATIVE); CLARITY,URINE CLEAR (CLEAR); COLOR,URINE YELLOW (YELLOW); KETONES,URINE NEGATIVE (NEGATIVE); LEUKOCYTE ESTERASE ,URINE NEGATIVE (NEGATIVE); NITRITE,URINE NEGATIVE (NEGATIVE); PROTEIN,URINE DIPSTICK NEGATIVE (NEGATIVE); URINE UROBILINOGEN 0.2 mg/dL (0.2 - 1)
[2018-04-16 15:32] LABS: MUCUS,URINE FEW (RARE); RBC,URINE 0-5 /HPF (0-5); WBC,URINE (MAN) 0-5 /HPF (0-5)
[2018-04-16 16:10] LABS: BASOPHILS # (AUTO) 0.1 (0.0-0.1); BASOPHILS % 0.7 % (0.0-1.0); EOSINOPHILS # (AUTO) 0.3 (0.0-0.4); EOSINOPHILS % 3.6 % (0.0-6.0); HEMATOCRIT 41.9 % (38.2-49.6); HEMOGLOBIN 13.9 g/dL (14.0-18.0); LYMPHOCYTES # (AUTO) 2.4 (1.0-3.2); LYMPHOCYTES % 28.8 % (18.0-39.1); MEAN CORPUSCULAR HEMOGLOBIN 32.3 pg (28-32); MEAN CORPUSCULAR HGB CONC 33.2 g/dL (31-35); MEAN CORPUSCULAR VOLUME 97.4 fL (81-99); MONOCYTES # (AUTO) 0.6 (0.2-0.8); NEUTROPHILS # (AUTO) 4.9 (2.1-6.9); NEUTROPHILS % 59.4 % (38.7-80.0); PLATELET COUNT 303 x10e3/uL (140-360)
[2018-04-16 16:18] LABS: INR 1.08; PROTHROMBIN TIME 13.2 seconds (11.9-14.5)
[2018-04-16] MEDS ORDERED: PHENAZOPYRIDINE HCL 100 MG TAB PO ONE (16:20)
[2018-04-16 16:26] LABS: ALBUMIN 3.7 g/dL (3.5-5.0); ALBUMIN/GLOBULIN RATIO 0.9 (0.8-2.0); ANION GAP 12.2 mmol/L (8-16); CALCIUM 9.7 mg/dL (8.4-10.2); CREATININE, SERUM 1.25 mg/dL (0.72-1.25); POTASSIUM 4.2 mmol/L (3.5-5.1)
[2018-04-16 16:33] LABS: CREATINE KINASE MB 4.5 ng/mL (0-5.0)
--- NOTE | 2018-04-16 16:35 | Diagnostic Imaging Report ---
EXAMINATION: CHEST SINGLE (NOT PORTABLE) INDICATION: \S\ERMD ORDER \S\[id number] \S\[id number] \S\Y COMPARISON: 04/11/2018 FINDINGS: AP view TUBES and LINES: None. LUNGS: Lungs are well inflated. Lungs are clear. There is no evidence of pneumonia or pulmonary edema. PLEURA: No pleural effusion or pneumothorax. HEART AND MEDIASTINUM: The cardiomediastinal silhouette is unremarkable. CABG clips. BONES AND SOFT TISSUES: No acute osseous lesion. Median sternotomy wires. Soft tissues are unremarkable. UPPER ABDOMEN: No free air under the diaphragm. IMPRESSION: No acute thoracic abnormality. Signed by: DR. Kevin Hastings MD on 04/16/2018 4:31 PM
[2018-04-16] MEDS ORDERED: LIDOCAINE HCL 2% 100 MG/5 ML IV ONE (17:13)
[2018-04-16] MEDS ORDERED: LIDOCAINE HCL 2% 30 ML TUBE ONE (17:22)
== END 2018-04-16 18:48 | disposition home or self-care (01) ==
LOC: ER 12:31
DX: N40.1 Benign prostatic hyperplasia with lower urinary tract symptoms (principal); R33.8 Other retention of urine; I11.0 Hypertensive heart disease with heart failure; I50.9 Heart failure, unspecified; I25.10 Atherosclerotic heart disease of native coronary artery without angina pectoris; E78.5 Hyperlipidemia, unspecified; E03.9 Hypothyroidism, unspecified; R00.1 Bradycardia, unspecified; G62.9 Polyneuropathy, unspecified; Z79.82 Long term (current) use of aspirin
CPT/HCPCS: 51700; 93005; 99284; J2001

== ENCOUNTER 2019-04-09 09:31 | Emergency (ER) | payer OTHER, MEDICARE ==
[~2019-04-09] VITALS: Ht 170.2 cm; Wt 122.5 kg
[2019-04-09] MEDS ORDERED: KETOROLAC TROMETHAMINE 60 MG/2 ML VIAL IM ONE (09:45)
[2019-04-09] MEDS ORDERED: KETOROLAC TROMETHAMINE 60 MG/2 ML VIAL ONE (09:46)
[2019-04-09] MEDS ORDERED: DEXAMETHASONE SOD PHOS 10 MG/1 ML VIAL IM ONE (10:30)
[2019-04-09] MEDS ORDERED: METHOCARBAMOL 500 MG TAB PO ONE (10:30)
--- NOTE | 2019-04-09 12:24 | Diagnostic Imaging Report ---
Lumbar spine series, 5 views. History: Left low back pain. Comparison: None available. Discussion: Transpedicular screws and interconnecting rods/plates are present from L3 through S1. Surgical hardware appears intact. The alignment of the lumbar spine is normal. There is no evidence of fracture, spondylolisthesis, or spondylolysis. Severe disc space narrowing with osteophytosis and posterior facet sclerosis are present from L3 through S1. Mild disc space narrowing is present in the more superior levels with osteophytosis. The paraspinal soft tissues are unremarkable. 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 Signed by: Vimal Fenton on 04/09/2019 12:21 PM
[2019-04-09] MEDS ORDERED: CLONIDINE HCL 0.1 MG/24 HR 1 EA PATCH TOP ONE (12:30)
[2019-04-09] MEDS ORDERED: CLONIDINE HCL 0.1 MG TAB ONE (12:36)
[2019-04-09] MEDS ORDERED: CLONIDINE HCL 0.1 MG TAB PO ONE (12:45)
--- NOTE | 2019-04-09 13:26 | NUR ---
Dr. Ahuja notified of current BP. Patient given home med for chronic HTN, linisopril 20mg and ok to discharge. Patient asymptomatic
[2019-04-09] MEDS ORDERED: LISINOPRIL 20 MG TAB PO ONE (13:30)
[2019-04-09] MEDS ORDERED: LISINOPRIL 20 MG TAB ONE (13:31)
[2019-04-09 13:37] VITALS: BP 191/85
== END 2019-04-09 13:38 | disposition home or self-care (01) ==
LOC: ER 09:31
DX: M51.17 Intervertebral disc disorders with radiculopathy, lumbosacral region (principal); I10 Essential (primary) hypertension; Z79.82 Long term (current) use of aspirin
CPT/HCPCS: 72110; 99282; J1100; J1885

== ENCOUNTER → 2019-05-21 | Day surgery (SDC) | payer OTHER ==
[2019-05-13 17:36] LABS: BASOPHILS % 0.1 % (0.0-1.0); EOSINOPHILS % 0.3 % (0.0-6.0); HEMATOCRIT 45.9 % (38.2-49.6); HEMOGLOBIN 14.9 g/dL (14.0-18.0); LYMPHOCYTES % 2.2 % (18.0-39.1); MEAN CORPUSCULAR HEMOGLOBIN 31.8 pg (28-32); MEAN CORPUSCULAR HGB CONC 32.5 g/dL (31-35); MEAN CORPUSCULAR VOLUME 98.1 fL (81-99); MONOCYTES % 0.9 % (4.4-11.3); NEUTROPHILS % 5.8 % (38.7-80.0); PLATELET COUNT 275 x10e3/uL (140-360); RED BLOOD COUNT 4.68 x10e6/uL (4.3-5.7); RED CELL DISTRIBUTION WIDTH 13.6 % (11.7-14.4)
[~2019-05-21] MED LIST changes: +MIDAZOLAM HCL 2 MG/2 ML VIAL ONE; +OR PHACO EYE KIT ONE; +PREOP PHACO EYE KIT ONE
[2019-05-21 14:15] VITALS: BP 142/89
== END | disposition home or self-care (01) ==
LOC: OR 10:38
PROVIDERS: ATTEND Ophthalmology
DX: H25.12 Age-related nuclear cataract, left eye (principal); I25.709 Atherosclerosis of coronary artery bypass graft(s), unspecified, with unspecified angina pectoris; I11.9 Hypertensive heart disease without heart failure; E78.5 Hyperlipidemia, unspecified; E03.9 Hypothyroidism, unspecified; R94.39 Abnormal result of other cardiovascular function study; E78.00 Pure hypercholesterolemia, unspecified; R94.31 Abnormal electrocardiogram [ECG] [EKG]; Z88.0 Allergy status to penicillin; Z79.82 Long term (current) use of aspirin; Z68.42 Body mass index [BMI] 45.0-49.9, adult; Z95.1 Presence of aortocoronary bypass graft; Z01.810 Encounter for preprocedural cardiovascular examination; Z01.812 Encounter for preprocedural laboratory examination
CPT/HCPCS: 36415; 66984; 85025; 93005; J2250; V2632

== ENCOUNTER 2023-12-10 14:18 | Emergency (ER) | payer OTHER ==
[~2023-12-10] VITALS: Ht 170.2 cm; Wt 127.0 kg
[~2023-12-10 14:18] MED LIST changes: +AZITHROMYCIN250 MG PO; -MIDAZOLAM HCL 2 MG/2 ML VIAL ONE; -OR PHACO EYE KIT ONE; -PREOP PHACO EYE KIT ONE
[2023-12-10 14:47] VITALS: O2SAT 100
[2023-12-10] MEDS ORDERED: TETANUS/DIPHTHERIA TOX ADULT 0.5 ML SYR IM ONE (15:30)
[2023-12-10] MEDS ORDERED: BUPIVACAINE HCL 0.5% 10ML MPF VIAL INJ ONE ×2 (15:35→16:15)
[2023-12-10] MEDS ORDERED: BUPIVACAINE HCL 0.25% 10ML MPF VIAL INJ ONE ×2 (15:45)
[2023-12-10] MEDS ORDERED: HYDROCODONE/APAP 5MG-325MG TAB PO ONE (15:45)
[2023-12-10] MEDS ORDERED: ULTRAM 50MG50 MG PO (16:31)
[2023-12-10] MEDS ORDERED: DOXYCYCLINE HY100 MG PO (16:31)
== END 2023-12-10 16:56 | disposition home or self-care (01) ==
LOC: ER 14:24
DX: S61.411A Laceration without foreign body of right hand, initial encounter (principal); W01.198A Fall on same level from slipping, tripping and stumbling with subsequent striking against other object, initial encounter; Y92.89 Other specified places as the place of occurrence of the external cause; I10 Essential (primary) hypertension; E78.5 Hyperlipidemia, unspecified; I50.9 Heart failure, unspecified; E03.9 Hypothyroidism, unspecified; I25.10 Atherosclerotic heart disease of native coronary artery without angina pectoris; G62.9 Polyneuropathy, unspecified; Z95.1 Presence of aortocoronary bypass graft; Z95.5 Presence of coronary angioplasty implant and graft
CPT/HCPCS: 99283